=== PATIENT | female | born 2000 | race Caucasian/White ===

== ENCOUNTER 2021-08-17 15:09 | Emergency (ER) | payer BC, SELFPAY ==
[2021-08-17 15:15] VITALS: BP 108/66; PULSE 106; RESP 20; TEMP 36.6; O2SAT 99
[2021-08-17 15:32] VITALS: BP 108/66; PULSE 106; RESP 20; TEMP 36.6; O2SAT 99
--- NOTE | 2021-08-17 15:43 | ED.SKABFB ---
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 Patient has rough red raised scaly irregular in appearance rash to bilateral hand and along wrist area, with right hand worse than left. Patient states that she is using Benadryl cream to hands. MD complaint: rash Location: LUE (hands and wrist) and RUE (hands and wrist) Treatments prior to arrival: OTC topical medication and corticosteroid Related Data Allergies Allergy/AdvReac Type Severity Reaction Status Date / Time No Known Allergies Allergy Verified 08/17/21 15:32 Review of Systems Review of Systems: CONSTITUTIONAL: Denies fever, chills, or sweats. EYES: Denies visual changes, redness, or discharge. ENT: Denies rhinorrhea, congestion, sore throat, or otalgia. CARDIOVASCULAR: Denies chest pain, palpitations, or edema. RESPIRATORY: Denies cough or dyspnea. GASTROINTESTINAL: Denies abdominal pain, nausea, vomiting, or diarrhea. GENITOURINARY: Denies dysuria or hematuria. SKIN: Positive for bilateral hand and wrist rash and itching. MUSCULOSKELETAL: Denies back pain, joint pain, or myalgia. NEUROLOGIC: Denies headache, numbness, or weakness. PSYCHIATRIC: Denies anxiety or depression. [facility] Past Medical History Medical History (Updated 08/19/21 @ 18:20 by Angie Patiño NP) ADHD (attention deficit hyperactivity disorder) Depression Ear infection Surgical History Surgical History (Updated 08/19/21 @ 18:21 by Angie Patiño NP) No history of previous surgery Family History Family History (Updated 08/19/21 @ 18:21 by Angie Patiño NP) Grandparent Breast cancer Social History Social History (Updated 08/19/21 @ 18:21 by Angie Patiño NP) Tobacco type: e-cigarettes/vaping Alcohol intake: current Alcohol use details: social Substance use type: marijuana Living arrangements: with family Gender identity (if verbalized by the patient): Female Comments At time of signature, agree with nursing past medical, surgical, social and family history. There is no relevant family history pertinent to the presenting complaint Exam Narrative: GENERAL: Well-appearing, well-nourished, and in no acute distress. HEAD: Normocephalic, atraumatic. EYES: PERRLA and EOMI. ENT: Nares clear, no rhinorrhea or epistaxis. Mucous membranes moist.TM's normal with good light reflex, throat pink with no lesions or exudates tonsils normal NECK: Supple.no lymphadenopathy CHEST: Clear to auscultation. No respiratory distress.SAO2 99% on room air HEART: Regular rate and rhythm. No murmur heard. Normal peripheral pulses. ABDOMEN: Soft, nontender, nondistended, normal active bowel sounds. EXTREMITIES: Normal range of motion. No edema. SKIN: Warm, dry, rough red dry scaly rash to bilateral hand and wrist with right worse than left, no drainage noted but is extremely itchy and is irritating NEURO: No focal deficits. Alert and oriented x3. Course Course Level of Care: Express Care Visit Vital Signs Vital signs: Vital Signs Temperature 36.6 C 08/17/21 15:15 Pulse Rate 106 H 08/17/21 15:15 Respiratory Rate 08/17/21 15:15 Blood Pressure 108/66 08/17/21 15:15 Pulse Oximetry 99 08/17/21 15:15 Oxygen Delivery Room Air 08/17/21 15:15 Temperature 36.6 C 08/17/21 15:32 Pulse Rate 106 H 08/17/21 15:32 Respiratory Rate 08/17/21 15:32 Blood Pressure 108/66
== END 2021-08-17 16:17 | disposition home or self-care (01) ==
PROVIDERS: Emergency Provider Registered Nurse
DX: L30.9 Dermatitis, unspecified (principal); F17.290 Nicotine dependence, other tobacco product, uncomplicated; F12.90 Cannabis use, unspecified, uncomplicated
CPT/HCPCS: 99203; G0463

== ENCOUNTER 2022-10-07 12:51 | Outpatient (CLI) | payer OTHER, SELFPAY ==
--- NOTE | ~2022-10-07 | US_ITS ---
US breast BI limited INDICATION: Palpable right breast lump TECHNIQUE: Dedicated Limited right breast ultrasound COMPARISON: No prior studies for comparison. FINDINGS: The right breast is composed of normal heterogeneous echotexture without focal solid or cys tic mass. IMPRESSION: 1: Normal right breast ultrasound. BI-RADS CATEGORY 1 - NEGATIVE Reviewed, dictated and finalized at location A.
== END 2022-10-07 12:52 | disposition home or self-care (01) ==
PROVIDERS: Visit Provider Advanced Practice Midwife
DX: N63.0 Unspecified lump in unspecified breast (principal)
CPT/HCPCS: 76642